=== PATIENT | male | born 1965 | race Two or more races ===

== ENCOUNTER 2022-03-15 16:22 | Emergency (ER) | payer MEDICAID ==
[~2022-03-15] VITALS: Ht 170.2 cm; Wt 87.6 kg
[2022-03-15 16:36] VITALS: BP 138/90
[2022-03-15] MEDS ORDERED: PRED20TA2 PO (18:07)
== END 2022-03-15 18:58 | disposition home or self-care (01) ==
LOC: ER 16:22
DX: G51.0 Bell's palsy (principal); E11.9 Type 2 diabetes mellitus without complications
CPT/HCPCS: 70450